=== PATIENT | female | born 1975 | race Caucasian/White ===

== ENCOUNTER 2018-12-18 08:23 | Day surgery (SDC) | payer OTHER ==
[~2018-12-18 08:23] MED LIST: TYLENOL-CODEINE1 TAB PO
== END 2018-12-18 13:20 | disposition home or self-care (01) ==
LOC: AMB-ENDOS 08:23
DX: D12.3 Benign neoplasm of transverse colon (principal)

== ENCOUNTER 2018-12-25 05:56 | Inpatient (IN) | payer OTHER ==
[~2018-12-25] VITALS: Ht 157.5 cm; Wt 64.4 kg
[2018-12-25] MEDS ORDERED: MISOPROSTOL200 MCG PO (16:45)
[2018-12-26] MEDS ORDERED: GAS RELIEF125 MG PO (08:49)
[2018-12-26] MEDS ORDERED: ULTRAM50 MG PO (08:49)
[2018-12-26] MEDS ORDERED: DOCUSATE SODIU100 MG PO (08:49)
== END 2018-12-26 16:40 | disposition home or self-care (01) | DRG 743 ==
LOC: CIR.AMB 05:56 → O/R 11:10 → OB/GYN 11:10
PROVIDERS: ADMIT Obstetrics & Gynecology
PROC: 0UT24ZZ Resection of Bilateral Ovaries, Percutaneous Endoscopic Approach (ICD-10-PCS; 2018-12-25)
PROC: 0UT74ZZ Resection of Bilateral Fallopian Tubes, Percutaneous Endoscopic Approach (ICD-10-PCS; 2018-12-25)
PROC: 0USG4ZZ Reposition Vagina, Percutaneous Endoscopic Approach (ICD-10-PCS; 2018-12-25)
PROC: 0DNW4ZZ Release Peritoneum, Percutaneous Endoscopic Approach (ICD-10-PCS; 2018-12-25)
PROC: 0DJD8ZZ Inspection of Lower Intestinal Tract, Via Natural or Artificial Opening Endoscopic (ICD-10-PCS; 2018-12-25)
PROC: 0UT94ZZ Resection of Uterus, Percutaneous Endoscopic Approach (ICD-10-PCS; principal; 2018-12-25 10:45)
DX: N80.0 Endometriosis of uterus (principal); N80.1 Endometriosis of ovary; K66.0 Peritoneal adhesions (postprocedural) (postinfection); N83.291 Other ovarian cyst, right side; N81.11 Cystocele, midline